=== PATIENT | female | born 1965 | race African-American/Black ===

== ENCOUNTER 2024-11-05 06:17 | Day surgery (SDC) | payer OTHER ==
[2024-10-30 10:08] VITALS: BMI 39.4
[2024-11-05] MEDS ORDERED: PROPOFOL 20 ML ONE (07:02)
[2024-11-05] MEDS ORDERED: Lidocaine 1% PF 5 ML VIAL ONE (07:03)
[2024-11-05] MEDS ORDERED: PROPOFOL 60 ML ONE (08:07)
== END 2024-11-05 09:15 | disposition home or self-care (01) ==
LOC: CSHSDC 06:17
PROVIDERS: ATTEND Surgery
PROC: 0DJD8ZZ Inspection of Lower Intestinal Tract, Via Natural or Artificial Opening Endoscopic (ICD-10-PCS; principal; 2024-11-05)
DX: Z12.11 Encounter for screening for malignant neoplasm of colon (principal); I10 Essential (primary) hypertension; F32.A Depression, unspecified; F17.200 Nicotine dependence, unspecified, uncomplicated; Z79.899 Other long term (current) drug therapy
CPT/HCPCS: J2704